=== PATIENT | female | born 1975 | race African-American/Black ===

== ENCOUNTER 2021-05-15 06:11 | Observation (INO) ==
[2021-05-11 14:57] LABS: Basophils % 0.6 % (0.0-0.8); Eosinophils # 0.3 10*3/uL (0.0-0.87); Eosinophils % 5.2 % (0.00-10.9); Hematocrit 32.6 VOL% (35.7-47.0); Hemoglobin 9.9 GM/DL (12.0-16.0); Immature Granulocytes % 0.4 %; Immature Granulocytes Absolute 0.02 #; Lymphocytes # 1.1 10*3/uL (1.4-4.0); Lymphocytes % 20.3 % (21.3-54.2); Mean Corpuscular HGB Conc 30.4 GM/DL (32-36); Mean Corpuscular Volume 93.4 FL (87-102); Mean Platelet Volume 10.3 FL (9.6-12.0); Monocytes % 6.3 % (1.7-12.7); Neutrophils % 67.2 % (38.7-73.9); Platelet Count 149 T/CUMM (130-400); Red Blood Count 3.49 MC/CUMM (3.8-5.5); Red Cell Distribution Width 17.2 % (9.3-17.3); White Blood Count 5.2 T/CUMM (4-12)
[2021-05-11 15:17] LABS: Calcium 10.1 MG/DL (8.5-10.1); Potassium 5.6 MMOL/L (3.5-5.1)
[~2021-05-15 06:11] MED LIST: SODIUM CHLORIDE 0.9% 250 ML IV SCH; ceFAZolin 1,000 MG VIAL ONE
[2021-05-15] MEDS ORDERED: LIDOCAINE 1%/EPI INJ 20 ML VIAL ONE (06:31)
[2021-05-15] MEDS ORDERED: HEPARIN 5,000 UNIT/1 ML VIAL ONE ×2 (06:31→06:51)
[2021-05-15] MEDS ORDERED: BUPIVACAINE MPF 0.25% 30 ML VIAL ONE (06:31)
[2021-05-15 06:43] LABS: Hematocrit 33.2 VOL% (35.7-47.0); Hemoglobin 10.4 GM/DL (12.0-16.0)
[2021-05-15] MEDS ORDERED: MIDAZOLAM 2 MG/2 ML VIAL ONE (07:10)
[2021-05-15] MEDS ORDERED: fentaNYL 100 MCG/2 ML VIAL ONE (07:27)
[2021-05-15] MEDS ORDERED: SODIUM CHLORIDE 0.9% 250 ML IV ONE (07:32)
[2021-05-15] MEDS ORDERED: DEXAMETHASONE 4 MG/1 ML VIAL ONE (07:58)
[2021-05-15] MEDS ORDERED: PHENYLEPHRINE 1 MG/10 ML SYRINGE IV ONE (08:05)
[2021-05-15] MEDS ORDERED: ONDANSETRON 4 MG/2 ML VIAL ONE (08:05)
[2021-05-15] MEDS ORDERED: propofoL 200 MG/20 ML VIAL IV ONE (08:05)
[2021-05-15] MEDS ORDERED: LIDOCAINE 2% 5 ML VIAL ONE (08:05)
[2021-05-15] MEDS ORDERED: HEPARIN 10,000 UNIT/10 ML VIAL ONE (08:11)
[2021-05-15] MEDS ORDERED: TISSUE ADHESIVE 1 EACH APPLICATOR TOP ONE (09:21)
[2021-05-15] MEDS ORDERED: SEVOFLURANE 1 UNIT/15 MINUTE INH ONE (09:49)
[2021-05-15] MEDS ORDERED: HYDROmorphone 2 MG/1 ML VIAL IV PRN (09:51)
[2021-05-15] MEDS ORDERED: ONDANSETRON 4 MG/2 ML VIAL IV PRN ×2 (09:51→16:29)
[2021-05-15] MEDS ORDERED: HYDROmorphone 2 MG/1 ML VIAL IV STA (12:57)
[2021-05-15] MEDS ORDERED: ACETAMINOPHEN 325 MG TABLET PO PRN (16:29)
[2021-05-15] MEDS: HYDROmorphone 2 MG/1 ML VIAL IV PRN (19:17)
[2021-05-16] MEDS: HYDROmorphone 2 MG/1 ML VIAL IV PRN ×5 (00:07→23:03)
[2021-05-16] MEDS: PANTOPRAZOLE 40 MG TABLET PO SCH (09:46)
[2021-05-16] MEDS ORDERED: LIDOCAINE 1% 20 ML VIAL MISC INJ ONE (10:35)
[2021-05-17] MEDS: HYDROmorphone 2 MG/1 ML VIAL IV PRN ×2 (05:34→10:03)
[2021-05-17] MEDS: PANTOPRAZOLE 40 MG TABLET PO SCH (08:07)
[2021-05-17 11:27] VITALS: BP 130/63
== END 2021-05-17 14:20 | disposition home or self-care (01) ==
LOC: N.3E 06:11 → N.OR 06:11 → N.SDSINP 06:11 → N.3E 16:50
PROVIDERS: ADMIT Student in an Organized Health Care Education/Training Program; ATTEND Student in an Organized Health Care Education/Training Program

== ENCOUNTER 2021-07-26 13:06 | Inpatient (IN) ==
[2021-07-26] MEDS ORDERED: HYDROmorphone 2 MG/1 ML VIAL IM STA (13:27)
[2021-07-26] MEDS ORDERED: ONDANSETRON 4 MG/2 ML VIAL IM STA (13:28)
[2021-07-26] MEDS ORDERED: ONDANSETRON 4 MG/2 ML VIAL IV STA (14:21)
[2021-07-26] MEDS ORDERED: HYDROmorphone 2 MG/1 ML VIAL IV STA ×2 (14:21→14:27)
[2021-07-26] MEDS ORDERED: ONDANSETRON 4 MG/2 ML VIAL IV PRN (14:33)
[2021-07-26] MEDS ORDERED: ACETAMINOPHEN 325 MG TABLET PO PRN (14:33)
[2021-07-26] MEDS ORDERED: BISACODYL 5 MG TABLET PO PRN (14:33)
[2021-07-26 15:00] LABS: Basophils # 0.1 10*3/uL (0.0-0.2); Basophils % 0.9 % (0.0-0.8); Eosinophils # 0.3 10*3/uL (0.0-0.87); Eosinophils % 3.5 % (0.00-10.9); Hematocrit 30.3 VOL% (35.7-47.0); Hemoglobin 9.5 GM/DL (12.0-16.0); Immature Granulocytes % 0.4 %; Immature Granulocytes Absolute 0.03 #; Lymphocytes # 0.8 10*3/uL (1.4-4.0); Lymphocytes % 11.8 % (21.3-54.2); Mean Corpuscular HGB Conc 31.4 GM/DL (32-36); Mean Corpuscular Volume 90.7 FL (87-102); Mean Platelet Volume 9.6 FL (9.6-12.0); Monocytes % 5.2 % (1.7-12.7); Neutrophils % 78.2 % (38.7-73.9); Platelet Count 140 T/CUMM (130-400); Red Blood Count 3.34 MC/CUMM (3.8-5.5); Red Cell Distribution Width 16.2 % (9.3-17.3); White Blood Count 7.1 T/CUMM (4-12)
[2021-07-26 15:12] LABS: Calcium 10.3 MG/DL (8.5-10.1); Osmolality,Calculated 266.4 MOS/KG (273-304); Potassium 3.6 MMOL/L (3.5-5.1)
[2021-07-26] MEDS: HYDROmorphone 2 MG/1 ML VIAL IV PRN (20:12)
[2021-07-26] MEDS: KETOROLAC 30 MG/1 ML VIAL IV PRN (23:14)
[2021-07-27] MEDS: HYDROmorphone 2 MG/1 ML VIAL IV PRN ×5 (00:36→23:45)
[2021-07-27] MEDS: KETOROLAC 30 MG/1 ML VIAL IV PRN ×2 (05:38→20:57)
[2021-07-27 05:41] LABS: Basophils % 0.4 % (0.0-0.8); Eosinophils % 0.4 % (0.00-10.9); Hematocrit 25.7 VOL% (35.7-47.0); Immature Granulocytes % 0.3 %; Immature Granulocytes Absolute 0.03 #; Lymphocytes # 1.2 10*3/uL (1.4-4.0); Lymphocytes % 11.6 % (21.3-54.2); Mean Corpuscular HGB Conc 31.1 GM/DL (32-36); Mean Corpuscular Volume 94.1 FL (87-102); Mean Platelet Volume 10.4 FL (9.6-12.0); Monocytes % 5.9 % (1.7-12.7); Neutrophils % 81.4 % (38.7-73.9); Platelet Count 166 T/CUMM (130-400); Red Blood Count 2.73 MC/CUMM (3.8-5.5); White Blood Count 9.9 T/CUMM (4-12)
[2021-07-27 06:06] LABS: Calcium 10.6 MG/DL (8.5-10.1); Osmolality,Calculated 266.5 MOS/KG (273-304); Potassium 4.9 MMOL/L (3.5-5.1)
[2021-07-27] MEDS: PANTOPRAZOLE 40 MG TABLET PO SCH (08:15)
[2021-07-27] MEDS ORDERED: BUPIVACAINE MPF 0.25% 30 ML VIAL ONE (08:25)
[2021-07-27] MEDS ORDERED: HEPARIN 5,000 UNIT/1 ML VIAL ONE (08:25)
[2021-07-27] MEDS ORDERED: LIDOCAINE 1%/EPI INJ 20 ML VIAL ONE (08:25)
[2021-07-27] MEDS ORDERED: propofoL 200 MG/20 ML VIAL IV ONE (08:41)
[2021-07-27] MEDS ORDERED: fentaNYL 100 MCG/2 ML VIAL ONE (08:41)
[2021-07-27] MEDS ORDERED: LIDOCAINE 2% 5 ML VIAL ONE (08:41)
[2021-07-27] MEDS ORDERED: MIDAZOLAM 2 MG/2 ML VIAL ONE (08:42)
[2021-07-27] MEDS ORDERED: SODIUM CHLORIDE 0.9% 250 ML IV SCH (09:00)
[2021-07-27] MEDS ORDERED: SODIUM CHLORIDE 0.9% 1,000 ML IV PRN (09:39)
[2021-07-27] MEDS ORDERED: SODIUM CHLORIDE 0.9% 250 ML IV ONE (10:21)
[2021-07-27] MEDS ORDERED: SEVOFLURANE 1 UNIT/15 MINUTE INH ONE (10:21)
[2021-07-27] MEDS ORDERED: PHENYLEPHRINE DRIP 20 MG/250 ML PREMIX IV ONE (10:38)
[2021-07-27] MEDS ORDERED: ONDANSETRON 4 MG/2 ML VIAL IV PRN (10:49)
[2021-07-27] MEDS ORDERED: HYDROmorphone 2 MG/1 ML VIAL IV PRN (10:49)
[2021-07-27] MEDS ORDERED: EPOETIN ALFA-EPBX 2,000 UNIT/ML VIAL IV PRN (17:24)
[2021-07-28] MEDS: PANTOPRAZOLE 40 MG TABLET PO SCH (09:08)
[2021-07-28] MEDS: diphenhydrAMINE CAP 25 MG CAPSULE PO PRN (12:24)
[2021-07-28] MEDS ORDERED: EPOETIN ALFA-EPBX 10,000 UNIT/ML VIAL IV PRN (17:30)
[2021-07-28] MEDS: HYDROmorphone 2 MG/1 ML VIAL IV PRN (18:34)
[2021-07-29] MEDS: HYDROmorphone 2 MG/1 ML VIAL IV PRN ×3 (02:01→21:24)
[2021-07-29 05:18] LABS: Basophils % 0.3 % (0.0-0.8); Eosinophils # 0.3 10*3/uL (0.0-0.87); Eosinophils % 4.2 % (0.00-10.9); Hematocrit 20.9 VOL% (35.7-47.0); Hemoglobin 6.6 GM/DL (12.0-16.0); Immature Granulocytes % 0.4 %; Immature Granulocytes Absolute 0.03 #; Lymphocytes # 1.4 10*3/uL (1.4-4.0); Lymphocytes % 19.7 % (21.3-54.2); Mean Corpuscular HGB Conc 31.6 GM/DL (32-36); Mean Corpuscular Volume 90.9 FL (87-102); Mean Platelet Volume 10.2 FL (9.6-12.0); Monocytes % 6.6 % (1.7-12.7); Neutrophils % 68.8 % (38.7-73.9); Platelet Count 106 T/CUMM (130-400); Red Cell Distribution Width 17.2 % (9.3-17.3); White Blood Count 7.1 T/CUMM (4-12)
[2021-07-29 05:37] LABS: Calcium 9.4 MG/DL (8.5-10.1); Osmolality,Calculated 267.4 MOS/KG (273-304); Potassium 4.2 MMOL/L (3.5-5.1)
[2021-07-29] MEDS ORDERED: SODIUM CHLORIDE 0.9% 1,000 ML IV PRN (08:37)
[2021-07-29] MEDS: PANTOPRAZOLE 40 MG TABLET PO SCH (09:21)
[2021-07-29 16:45] LABS: Hematocrit 30.3 VOL% (35.7-47.0)
[2021-07-29 16:58] LABS: INR 1.2; PT Patient Result 13.2 SECS (10.5-12.0); Partial Thromboplastin Time 33.5 SECS (23.8-32.1)
[2021-07-30 04:44] LABS: Basophils % 0.6 % (0.0-0.8); Eosinophils # 0.5 10*3/uL (0.0-0.87); Eosinophils % 7.8 % (0.00-10.9); Hematocrit 26.1 VOL% (35.7-47.0); Hemoglobin 8.8 GM/DL (12.0-16.0); Immature Granulocytes % 0.4 %; Immature Granulocytes Absolute 0.03 #; Lymphocytes # 1.4 10*3/uL (1.4-4.0); Lymphocytes % 19.5 % (21.3-54.2); Mean Corpuscular HGB Conc 33.7 GM/DL (32-36); Mean Corpuscular Volume 88.8 FL (87-102); Monocytes % 7.6 % (1.7-12.7); Neutrophils % 64.1 % (38.7-73.9); Platelet Count 114 T/CUMM (130-400); Red Blood Count 2.94 MC/CUMM (3.8-5.5); Red Cell Distribution Width 16.4 % (9.3-17.3); White Blood Count 6.9 T/CUMM (4-12)
[2021-07-30] MEDS: PANTOPRAZOLE 40 MG TABLET PO SCH (10:00)
[2021-07-30] MEDS: HYDROmorphone 2 MG/1 ML VIAL IV PRN ×2 (14:30→21:05)
[2021-07-31] MEDS: KETOROLAC 30 MG/1 ML VIAL IV PRN (01:35)
[2021-07-31] MEDS: diphenhydrAMINE CAP 25 MG CAPSULE PO PRN ×2 (01:35→16:48)
[2021-07-31 06:12] LABS: Hematocrit 26.4 VOL% (35.7-47.0)
[2021-07-31] MEDS: PANTOPRAZOLE 40 MG TABLET PO SCH (09:19)
[2021-07-31] MEDS ORDERED: HEPARIN 10,000 UNIT/10 ML VIAL IV SCH (12:30)
[2021-07-31] MEDS: HYDROmorphone 2 MG/1 ML VIAL IV PRN ×2 (14:12→21:29)
[2021-08-01] MEDS: HYDROmorphone 2 MG/1 ML VIAL IV PRN ×4 (01:20→15:17)
[2021-08-01 06:45] LABS: Basophils % 0.4 % (0.0-0.8); Eosinophils # 0.4 10*3/uL (0.0-0.87); Eosinophils % 9.1 % (0.00-10.9); Hematocrit 24.8 VOL% (35.7-47.0); Hemoglobin 8.1 GM/DL (12.0-16.0); Immature Granulocytes % 0.4 %; Immature Granulocytes Absolute 0.02 #; Lymphocytes % 21.9 % (21.3-54.2); Mean Corpuscular HGB Conc 32.7 GM/DL (32-36); Mean Corpuscular Volume 91.9 FL (87-102); Mean Platelet Volume 9.6 FL (9.6-12.0); Monocytes % 8.8 % (1.7-12.7); Neutrophils % 59.4 % (38.7-73.9); Platelet Count 141 T/CUMM (130-400); Red Cell Distribution Width 17.1 % (9.3-17.3); White Blood Count 4.8 T/CUMM (4-12)
[2021-08-01] MEDS: PANTOPRAZOLE 40 MG TABLET PO SCH (09:32)
[2021-08-01] MEDS: diphenhydrAMINE CAP 25 MG CAPSULE PO PRN (09:32)
[2021-08-01 14:33] LABS: Hematocrit 23.8 VOL% (35.7-47.0); Hemoglobin 7.8 GM/DL (12.0-16.0)
[2021-08-01 16:41] VITALS: BP 165/76
== END 2021-08-01 17:59 | disposition home or self-care (01) | DRG 987 ==
LOC: N.ED 13:06 → N.EDINP 13:06 → N.3E 20:44
PROVIDERS: ADMIT Surgery; ATTEND Student in an Organized Health Care Education/Training Program
PROC: VAVDCFI (2021-07-27 09:04)

== ENCOUNTER 2021-11-09 23:31 | Inpatient (IN) ==
[2021-11-10] MEDS ORDERED: ONDANSETRON 4 MG/2 ML VIAL ONE (00:15)
[2021-11-10] MEDS ORDERED: fentaNYL 100 MCG/2 ML VIAL ONE (00:16)
[2021-11-10] MEDS ORDERED: ONDANSETRON 4 MG/2 ML VIAL IV STA ×2 (00:21→01:04)
[2021-11-10] MEDS ORDERED: fentaNYL 100 MCG/2 ML VIAL IV STA (00:22)
[2021-11-10 00:40] LABS: Albumin 2.7 G/DL (3.4-5.0); Bilirubin,Total 0.6 MG/DL (0.20-1.00); Potassium 3.7 MMOL/L (3.5-5.1); Total Protein 6.9 G/DL (6.4-8.2)
[2021-11-10 00:56] LABS: Basophils # 0.1 10*3/uL (0.0-0.2); Basophils % 0.6 % (0.0-0.8); Eosinophils # 0.5 10*3/uL (0.0-0.87); Eosinophils % 4.5 % (0.00-10.9); Hematocrit 29.7 VOL% (35.7-47.0); Hemoglobin 9.1 GM/DL (12.0-16.0); Immature Granulocytes % 0.3 %; Immature Granulocytes Absolute 0.03 #; Lymphocytes # 2.6 10*3/uL (1.4-4.0); Lymphocytes % 23.5 % (21.3-54.2); Mean Corpuscular HGB Conc 30.6 GM/DL (32-36); Mean Corpuscular Volume 90.3 FL (87-102); Mean Platelet Volume 9.9 FL (9.6-12.0); Monocytes % 4.8 % (1.7-12.7); Neutrophils % 66.3 % (38.7-73.9); Platelet Count 227 T/CUMM (130-400); Red Blood Count 3.29 MC/CUMM (3.8-5.5); Red Cell Distribution Width 16.4 % (9.3-17.3); White Blood Count 10.9 T/CUMM (4-12)
[2021-11-10] MEDS ORDERED: MORPHINE 2 MG/1 ML SYRINGE IV STA (01:04)
[2021-11-10 01:22] LABS: INR 1.4; PT Patient Result 14.9 SECS (10.5-12.0)
[2021-11-10] MEDS ORDERED: hydrALAZINE 20 MG/1 ML VIAL IV STA (01:35)
[2021-11-10] MEDS ORDERED: diphenhydrAMINE 50 MG/1 ML VIAL IV STA (01:39)
[2021-11-10] MEDS ORDERED: methylPREDNISolone SOD SUC 125 MG/2 ML VIAL IV STA (01:39)
[2021-11-10] MEDS ORDERED: FAMOTIDINE 20 MG/2 ML VIAL IV STA (01:40)
[2021-11-10] MEDS ORDERED: LORazepam 2 MG/1 ML VIAL IV STA (01:43)
[2021-11-10] MEDS ORDERED: hydrALAZINE 20 MG/1 ML VIAL IV PRN (04:54)
[2021-11-10] MEDS ORDERED: ACETAMINOPHEN 325 MG TABLET PO PRN (04:54)
[2021-11-10] MEDS: HYDROmorphone 2 MG/1 ML VIAL IV PRN ×3 (05:47→22:38)
[2021-11-10] MEDS ORDERED: BUPIVACAINE MPF 0.25% 30 ML VIAL ONE (10:13)
[2021-11-10] MEDS ORDERED: HEPARIN 5,000 UNIT/1 ML VIAL ONE (10:13)
[2021-11-10] MEDS ORDERED: LIDOCAINE 1%/EPI INJ 20 ML VIAL ONE (10:14)
[2021-11-10] MEDS ORDERED: ETOMIDATE 40 MG/20 ML VIAL IV ONE (10:25)
[2021-11-10] MEDS ORDERED: LIDOCAINE 2% 5 ML VIAL ONE (10:25)
[2021-11-10] MEDS ORDERED: propofoL 200 MG/20 ML VIAL IV ONE (10:25)
[2021-11-10] MEDS ORDERED: SODIUM CHLORIDE 0.9% 250 ML IV SCH (10:30)
[2021-11-10] MEDS ORDERED: SEVOFLURANE 1 UNIT/15 MINUTE INH ONE (11:05)
[2021-11-10] MEDS: PANTOPRAZOLE 40 MG TABLET PO SCH (11:40)
[2021-11-10] MEDS: SEVELAMER CARBONATE 800 MG TABLET PO SCH (16:57)
[2021-11-11] MEDS: HYDROmorphone 2 MG/1 ML VIAL IV PRN ×4 (03:04→22:58)
[2021-11-11 06:50] LABS: Basophils % 0.2 % (0.0-0.8); Eosinophils # 0.2 10*3/uL (0.0-0.87); Eosinophils % 4.1 % (0.00-10.9); Hemoglobin 7.7 GM/DL (12.0-16.0); Immature Granulocytes % 0.2 %; Immature Granulocytes Absolute 0.01 #; Lymphocytes # 1.5 10*3/uL (1.4-4.0); Lymphocytes % 34.8 % (21.3-54.2); Mean Corpuscular HGB Conc 30.8 GM/DL (32-36); Mean Corpuscular Volume 90.3 FL (87-102); Mean Platelet Volume 9.6 FL (9.6-12.0); Monocytes % 8.1 % (1.7-12.7); Neutrophils % 52.6 % (38.7-73.9); Platelet Count 104 T/CUMM (130-400); Red Blood Count 2.77 MC/CUMM (3.8-5.5); Red Cell Distribution Width 16.4 % (9.3-17.3); White Blood Count 4.4 T/CUMM (4-12)
[2021-11-11 07:06] LABS: Calcium 9.2 MG/DL (8.5-10.1); Osmolality,Calculated 270.4 MOS/KG (273-304); Potassium 3.6 MMOL/L (3.5-5.1)
[2021-11-11] MEDS: SEVELAMER CARBONATE 800 MG TABLET PO SCH ×3 (08:36→17:11)
[2021-11-11] MEDS: PANTOPRAZOLE 40 MG TABLET PO SCH (08:36)
[2021-11-12] MEDS: HYDROmorphone 2 MG/1 ML VIAL IV PRN ×3 (06:31→19:20)
[2021-11-12] MEDS: PANTOPRAZOLE 40 MG TABLET PO SCH (09:17)
[2021-11-12] MEDS: SEVELAMER CARBONATE 800 MG TABLET PO SCH ×3 (09:17→16:45)
[2021-11-13] MEDS: SEVELAMER CARBONATE 800 MG TABLET PO SCH ×3 (08:33→17:41)
[2021-11-13] MEDS: PANTOPRAZOLE 40 MG TABLET PO SCH (08:33)
[2021-11-13] MEDS: HYDROmorphone 2 MG/1 ML VIAL IV PRN ×2 (08:49→17:39)
[2021-11-13] MEDS ORDERED: VANCOMYCIN INJ 1,000 MG in SODIUM CHLORIDE 0.9% 250 ML IV ONE (09:17)
[2021-11-13] MEDS: ONDANSETRON 4 MG/2 ML VIAL IV PRN (14:09)
[2021-11-13] MEDS ORDERED: VANCOMYCIN INJ 2,000 MG in SODIUM CHLORIDE 0.9% 500 ML IV ONE (18:00)
[2021-11-14] MEDS: ONDANSETRON 4 MG/2 ML VIAL IV PRN ×2 (01:16→08:46)
[2021-11-14] MEDS: HYDROmorphone 2 MG/1 ML VIAL IV PRN (05:52)
[2021-11-14] MEDS ORDERED: NAPROXEN 250 MG TABLET PO PRN (07:04)
[2021-11-14] MEDS ORDERED: ASPIRIN ACETAMINOPHEN CAFFEINE PO PRN (07:04)
[2021-11-14] MEDS ORDERED: SEVELAMER CARBONATE 800 MG TABLET PO SCH (08:00)
[2021-11-14] MEDS: PANTOPRAZOLE 40 MG TABLET PO SCH (08:40)
[2021-11-14] MEDS: SEVELAMER CARBONATE 800 MG TABLET PO SCH ×2 (08:40→11:24)
[2021-11-14] MEDS ORDERED: HEPARIN 10,000 UNIT/10 ML VIAL IV SCH (11:30)
[2021-11-14 16:35] VITALS: BP 157/86
[2021-11-15] MEDS ORDERED: VANCOMYCIN INJ 750 MG in SODIUM CHLORIDE 0.9% 250 ML IV SCH (17:00)
== END 2021-11-14 16:38 | disposition home or self-care (01) | DRG 252 ==
LOC: EDUNIT# → EDBD → N.ED 23:31 → N.EDINP 11-10 01:15 → N.TELES 11-10 03:57
PROVIDERS: ADMIT Surgery; ATTEND Surgery

== ENCOUNTER 2022-01-10 20:10 | Inpatient (IN) ==
[2022-01-10] MEDS ORDERED: PIPERACILLIN/TAZOBACTAM 2,250 MG in SODIUM CHLORIDE 0.9% 100 ML IV STA (21:19)
[2022-01-10] MEDS ORDERED: ACETAMINOPHEN 500 MG TABLET PO STA (21:19)
[2022-01-10] MEDS ORDERED: hydrALAZINE 20 MG/1 ML VIAL IV STA (21:19)
[2022-01-10] MEDS ORDERED: ALBUTEROL/IPRATROPIUM 3 ML NEB RESP TX STA (21:19)
[2022-01-10 21:59] LABS: Basophils % 0.2 % (0.0-0.8); Eosinophils # 0.2 10*3/uL (0.0-0.87); Eosinophils % 1.7 % (0.00-10.9); Hematocrit 38.3 VOL% (35.7-47.0); Hemoglobin 12.4 GM/DL (12.0-16.0); Immature Granulocytes % 0.7 %; Immature Granulocytes Absolute 0.07 #; Lymphocytes # 0.6 10*3/uL (1.4-4.0); Lymphocytes % 5.6 % (21.3-54.2); Mean Corpuscular HGB Conc 32.4 GM/DL (32-36); Mean Corpuscular Volume 88.9 FL (87-102); Monocytes # 0.5 10*3/uL (0.11-0.8); Monocytes % 4.9 % (1.7-12.7); Neutrophils % 86.9 % (38.7-73.9); Platelet Count 113 T/CUMM (130-400); Red Blood Count 4.31 MC/CUMM (3.8-5.5); Red Cell Distribution Width 17.2 % (9.3-17.3); White Blood Count 10.1 T/CUMM (4-12)
[2022-01-10 22:19] LABS: Albumin 3.9 G/DL (3.4-5.0); Bilirubin,Total 0.9 MG/DL (0.20-1.00); Calcium 10.2 MG/DL (8.5-10.1); Osmolality,Calculated 275.2 MOS/KG (273-304); Potassium 3.9 MMOL/L (3.5-5.1); Total Protein 8.7 G/DL (6.4-8.2)
[2022-01-10] MEDS ORDERED: BISACODYL 5 MG TABLET PO PRN (23:11)
[2022-01-10] MEDS ORDERED: NICOTINE 21 MG/24 HR PATCH TRANSDERM PRN (23:11)
[2022-01-10] MEDS ORDERED: DEXTROSE 10% 250 ML BAG IV PRN (23:11)
[2022-01-10] MEDS ORDERED: ONDANSETRON 4 MG/2 ML VIAL IV PRN (23:11)
[2022-01-10] MEDS ORDERED: GLUCAGON 1 MG VIAL IM PRN (23:11)
[2022-01-10] MEDS ORDERED: hydrALAZINE 20 MG/1 ML VIAL IV PRN (23:11)
[2022-01-11] MEDS: ZALEPLON 5 MG CAPSULE PO PRN (00:27)
[2022-01-11] MEDS: ALBUTEROL/IPRATROPIUM 3 ML NEB RESP TX SCH ×4 (01:55→19:33)
[2022-01-11] MEDS ORDERED: VANCOMYCIN INJ 500 MG in SODIUM CHLORIDE 0.9% 100 ML IV PRN (02:31)
[2022-01-11] MEDS ORDERED: VANCOMYCIN INJ 1,500 MG in SODIUM CHLORIDE 0.9% 500 ML IV ONE (03:00)
[2022-01-11 03:27] LABS: Basophils % 0.3 % (0.0-0.8); Eosinophils # 0.2 10*3/uL (0.0-0.87); Eosinophils % 2.7 % (0.00-10.9); Hematocrit 35.2 VOL% (35.7-47.0); Hemoglobin 11.3 GM/DL (12.0-16.0); Immature Granulocytes % 0.4 %; Immature Granulocytes Absolute 0.03 #; Lymphocytes # 0.7 10*3/uL (1.4-4.0); Lymphocytes % 8.5 % (21.3-54.2); Mean Corpuscular HGB Conc 32.1 GM/DL (32-36); Mean Corpuscular Volume 88.7 FL (87-102); Mean Platelet Volume 9.8 FL (9.6-12.0); Monocytes # 0.4 10*3/uL (0.11-0.8); Monocytes % 4.7 % (1.7-12.7); Neutrophils % 83.4 % (38.7-73.9); Platelet Count 104 T/CUMM (130-400); Red Blood Count 3.97 MC/CUMM (3.8-5.5); Red Cell Distribution Width 17.2 % (9.3-17.3); White Blood Count 7.8 T/CUMM (4-12)
[2022-01-11 03:46] LABS: Calcium 10.1 MG/DL (8.5-10.1); Osmolality,Calculated 275.2 MOS/KG (273-304); Potassium 3.9 MMOL/L (3.5-5.1)
[2022-01-11] MEDS: PIPERACILLIN/TAZOBACTAM 3,375 MG in SODIUM CHLORIDE 0.9% 100 ML IV SCH ×2 (06:45→17:37)
[2022-01-11] MEDS: HEPARIN 5,000 UNIT/1 ML VIAL SUBCUT SCH ×2 (12:11→20:58)
[2022-01-11] MEDS: PANTOPRAZOLE 40 MG TABLET PO SCH (12:11)
[2022-01-11] MEDS: SEVELAMER CARBONATE 800 MG TABLET PO SCH ×2 (12:14→16:50)
[2022-01-11] MEDS: ACETAMINOPHEN 325 MG TABLET PO PRN (12:46)
[2022-01-11] MEDS ORDERED: FLUCONAZOLE 150 MG TABLET PO ONE (17:00)
[2022-01-12] MEDS: ZALEPLON 5 MG CAPSULE PO PRN ×2 (00:11→21:26)
[2022-01-12] MEDS: diphenhydrAMINE CAP 25 MG CAPSULE PO PRN ×2 (00:11→21:25)
[2022-01-12] MEDS: ALBUTEROL/IPRATROPIUM 3 ML NEB RESP TX SCH ×4 (00:38→20:15)
[2022-01-12 05:22] LABS: Basophils % 0.4 % (0.0-0.8); Eosinophils # 0.3 10*3/uL (0.0-0.87); Eosinophils % 6.2 % (0.00-10.9); Hematocrit 28.5 VOL% (35.7-47.0); Hemoglobin 9.1 GM/DL (12.0-16.0); Immature Granulocytes % 0.2 %; Immature Granulocytes Absolute 0.01 #; Lymphocytes # 0.7 10*3/uL (1.4-4.0); Lymphocytes % 15.9 % (21.3-54.2); Mean Corpuscular HGB Conc 31.9 GM/DL (32-36); Mean Corpuscular Volume 90.2 FL (87-102); Mean Platelet Volume 10.5 FL (9.6-12.0); Monocytes # 0.4 10*3/uL (0.11-0.8); Monocytes % 8.6 % (1.7-12.7); Neutrophils % 68.7 % (38.7-73.9); Platelet Count 106 T/CUMM (130-400); Red Blood Count 3.16 MC/CUMM (3.8-5.5); White Blood Count 4.5 T/CUMM (4-12)
[2022-01-12] MEDS: PIPERACILLIN/TAZOBACTAM 3,375 MG in SODIUM CHLORIDE 0.9% 100 ML IV SCH ×2 (05:22→19:08)
[2022-01-12 05:34] LABS: Calcium 9.6 MG/DL (8.5-10.1); Osmolality,Calculated 281.1 MOS/KG (273-304); Potassium 4.1 MMOL/L (3.5-5.1)
[2022-01-12] MEDS: SEVELAMER CARBONATE 800 MG TABLET PO SCH ×3 (08:44→16:45)
[2022-01-12] MEDS: PANTOPRAZOLE 40 MG TABLET PO SCH (08:45)
[2022-01-12] MEDS: HEPARIN 5,000 UNIT/1 ML VIAL SUBCUT SCH ×2 (08:46→21:26)
[2022-01-12] MEDS ORDERED: VANCOMYCIN INJ 500 MG in SODIUM CHLORIDE 0.9% 100 ML IV ONE (17:00)
[2022-01-12] MEDS: CHOLESTYRAMINE 4 GM PACK PO SCH (22:14)
[2022-01-13] MEDS: ALBUTEROL/IPRATROPIUM 3 ML NEB RESP TX SCH ×4 (02:56→19:45)
[2022-01-13] MEDS: PIPERACILLIN/TAZOBACTAM 3,375 MG in SODIUM CHLORIDE 0.9% 100 ML IV SCH ×2 (05:41→17:08)
[2022-01-13 08:51] LABS: Basophils % 0.7 % (0.0-0.8); Eosinophils # 0.3 10*3/uL (0.0-0.87); Eosinophils % 9.1 % (0.00-10.9); Hematocrit 31.5 VOL% (35.7-47.0); Hemoglobin 9.9 GM/DL (12.0-16.0); Immature Granulocytes % 0.3 %; Immature Granulocytes Absolute 0.01 #; Lymphocytes # 0.7 10*3/uL (1.4-4.0); Lymphocytes % 24.3 % (21.3-54.2); Mean Corpuscular HGB Conc 31.4 GM/DL (32-36); Mean Platelet Volume 10.6 FL (9.6-12.0); Monocytes # 0.3 10*3/uL (0.11-0.8); Monocytes % 8.8 % (1.7-12.7); Neutrophils % 56.8 % (38.7-73.9); Platelet Count 115 T/CUMM (130-400); Red Blood Count 3.46 MC/CUMM (3.8-5.5); Red Cell Distribution Width 17.2 % (9.3-17.3)
[2022-01-13 09:08] LABS: Calcium 10.3 MG/DL (8.5-10.1); Osmolality,Calculated 268.4 MOS/KG (273-304); Potassium 3.9 MMOL/L (3.5-5.1)
[2022-01-13] MEDS: PANTOPRAZOLE 40 MG TABLET PO SCH (09:12)
[2022-01-13] MEDS: SEVELAMER CARBONATE 800 MG TABLET PO SCH ×3 (09:12→17:08)
[2022-01-13] MEDS: HEPARIN 5,000 UNIT/1 ML VIAL SUBCUT SCH ×2 (09:12→21:16)
[2022-01-13] MEDS: CHOLESTYRAMINE 4 GM PACK PO SCH ×2 (10:31→21:52)
[2022-01-13] MEDS: FLUCONAZOLE 100 MG TABLET PO SCH (14:25)
[2022-01-13] MEDS: tiZANidine 4 MG TABLET PO PRN (15:44)
[2022-01-13] MEDS: guaiFENesin/DM ER 600-30 MG TABLET PO PRN (17:08)
[2022-01-13] MEDS: diphenhydrAMINE CAP 25 MG CAPSULE PO PRN (21:16)
[2022-01-13] MEDS: ZALEPLON 5 MG CAPSULE PO PRN (21:16)
[2022-01-14] MEDS: tiZANidine 4 MG TABLET PO PRN ×3 (00:26→20:44)
[2022-01-14] MEDS: ALBUTEROL/IPRATROPIUM 3 ML NEB RESP TX SCH ×4 (01:39→19:00)
[2022-01-14] MEDS: PIPERACILLIN/TAZOBACTAM 3,375 MG in SODIUM CHLORIDE 0.9% 100 ML IV SCH (05:11)
[2022-01-14 05:13] LABS: Basophils % 0.7 % (0.0-0.8); Eosinophils # 0.3 10*3/uL (0.0-0.87); Eosinophils % 9.7 % (0.00-10.9); Hematocrit 27.8 VOL% (35.7-47.0); Hemoglobin 8.7 GM/DL (12.0-16.0); Immature Granulocytes % 0.3 %; Immature Granulocytes Absolute 0.01 #; Lymphocytes # 0.8 10*3/uL (1.4-4.0); Lymphocytes % 26.6 % (21.3-54.2); Mean Corpuscular HGB Conc 31.3 GM/DL (32-36); Mean Corpuscular Volume 90.8 FL (87-102); Mean Platelet Volume 10.7 FL (9.6-12.0); Monocytes # 0.2 10*3/uL (0.11-0.8); Monocytes % 6.9 % (1.7-12.7); Neutrophils % 55.8 % (38.7-73.9); Platelet Count 106 T/CUMM (130-400); Red Blood Count 3.06 MC/CUMM (3.8-5.5); Red Cell Distribution Width 16.9 % (9.3-17.3); White Blood Count 2.9 T/CUMM (4-12)
[2022-01-14 05:42] LABS: Calcium 9.9 MG/DL (8.5-10.1); Osmolality,Calculated 264.8 MOS/KG (273-304); Potassium 4.3 MMOL/L (3.5-5.1)
[2022-01-14] MEDS: FLUCONAZOLE 100 MG TABLET PO SCH (09:15)
[2022-01-14] MEDS: guaiFENesin/DM ER 600-30 MG TABLET PO PRN (09:15)
[2022-01-14] MEDS: PANTOPRAZOLE 40 MG TABLET PO SCH (09:15)
[2022-01-14] MEDS: HEPARIN 5,000 UNIT/1 ML VIAL SUBCUT SCH ×2 (09:16→20:44)
[2022-01-14] MEDS: SEVELAMER CARBONATE 800 MG TABLET PO SCH ×3 (09:16→17:57)
[2022-01-14] MEDS ORDERED: LOPERAMIDE 2 MG CAPSULE PO PRN (10:32)
[2022-01-14] MEDS: CHOLESTYRAMINE 4 GM PACK PO SCH ×2 (11:45→21:36)
[2022-01-14] MEDS: ACETAMINOPHEN 325 MG TABLET PO PRN (13:35)
[2022-01-14] MEDS: BENZONATATE 100 MG CAPSULE PO SCH ×2 (14:24→20:44)
[2022-01-14] MEDS: diphenhydrAMINE CAP 25 MG CAPSULE PO PRN (20:44)
[2022-01-14] MEDS: ZALEPLON 5 MG CAPSULE PO PRN (20:44)
[2022-01-15] MEDS: ALBUTEROL/IPRATROPIUM 3 ML NEB RESP TX SCH ×3 (00:05→12:32)
[2022-01-15 05:05] LABS: Basophils % 0.3 % (0.0-0.8); Eosinophils # 0.3 10*3/uL (0.0-0.87); Eosinophils % 8.9 % (0.00-10.9); Hematocrit 27.4 VOL% (35.7-47.0); Hemoglobin 8.6 GM/DL (12.0-16.0); Immature Granulocytes % 0.3 %; Immature Granulocytes Absolute 0.01 #; Lymphocytes # 0.7 10*3/uL (1.4-4.0); Lymphocytes % 23.6 % (21.3-54.2); Mean Corpuscular HGB Conc 31.4 GM/DL (32-36); Mean Corpuscular Volume 89.8 FL (87-102); Mean Platelet Volume 10.8 FL (9.6-12.0); Monocytes # 0.2 10*3/uL (0.11-0.8); Monocytes % 6.6 % (1.7-12.7); Neutrophils % 60.3 % (38.7-73.9); Platelet Count 112 T/CUMM (130-400); Red Blood Count 3.05 MC/CUMM (3.8-5.5); Red Cell Distribution Width 16.7 % (9.3-17.3); White Blood Count 3.1 T/CUMM (4-12)
[2022-01-15 05:09] LABS: Basophils % 0.3 % (0.0-0.8); Eosinophils # 0.3 10*3/uL (0.0-0.87); Eosinophils % 8.9 % (0.00-10.9); Hematocrit 27.6 VOL% (35.7-47.0); Hemoglobin 8.6 GM/DL (12.0-16.0); Immature Granulocytes % 0.3 %; Immature Granulocytes Absolute 0.01 #; Lymphocytes # 0.8 10*3/uL (1.4-4.0); Lymphocytes % 24.4 % (21.3-54.2); Mean Corpuscular HGB Conc 31.2 GM/DL (32-36); Mean Corpuscular Volume 89.6 FL (87-102); Mean Platelet Volume 10.9 FL (9.6-12.0); Monocytes # 0.2 10*3/uL (0.11-0.8); Monocytes % 6.7 % (1.7-12.7); Neutrophils % 59.4 % (38.7-73.9); Platelet Count 107 T/CUMM (130-400); Red Blood Count 3.08 MC/CUMM (3.8-5.5); Red Cell Distribution Width 16.6 % (9.3-17.3); White Blood Count 3.2 T/CUMM (4-12)
[2022-01-15 05:30] LABS: % Iron Saturation 35.1 % (18-50); Ferritin 896.2 ng/mL (8-252)
[2022-01-15 05:46] LABS: Folate 4.15 NG/ML (5.38-24.0); Vitamin B12 361 PG/ML (211-911)
[2022-01-15 06:18] LABS: Sedimentation Rate-Westergren 80 MM/HR (0-20)
[2022-01-15] MEDS: PANTOPRAZOLE 40 MG TABLET PO SCH (08:34)
[2022-01-15] MEDS: BENZONATATE 100 MG CAPSULE PO SCH ×2 (08:34→14:11)
[2022-01-15] MEDS: FLUCONAZOLE 100 MG TABLET PO SCH (08:34)
[2022-01-15] MEDS: SEVELAMER CARBONATE 800 MG TABLET PO SCH ×2 (08:34→12:55)
[2022-01-15] MEDS: HEPARIN 5,000 UNIT/1 ML VIAL SUBCUT SCH (08:37)
[2022-01-15] MEDS ORDERED: HEPARIN 10,000 UNIT/10 ML VIAL IV PRN (10:45)
[2022-01-15] MEDS: CHOLESTYRAMINE 4 GM PACK PO SCH (11:30)
[2022-01-15 11:32] LABS: Hemoglobin A1 (Alkaline) 97.2 % (96.5-98.5); Hemoglobin A2 (Alkaline) 2.8 % (1.5-3.5)
[2022-01-15 13:21] VITALS: BP 175/64
== END 2022-01-15 14:48 | disposition home or self-care (01) | DRG 864 ==
LOC: N.ED 20:10 → N.EDINP 23:11 → SUATTDRO 23:11 → N.EDINP 01-11 14:07 → N.3E 01-11 14:35
PROVIDERS: ADMIT Internal Medicine Geriatric Medicine; ATTEND Hospitalist

== ENCOUNTER 2022-11-01 16:57 | Inpatient (IN) ==
[2022-11-01 17:37] LABS: Basophils # 0.1 10*3/uL (0.0-0.2); Basophils % 0.9 % (0.0-0.8); Eosinophils # 0.2 10*3/uL (0.0-0.87); Eosinophils % 2.1 % (0.00-10.9); Hematocrit 33.4 VOL% (35.7-47.0); Hemoglobin 10.2 GM/DL (12.0-16.0); Immature Granulocytes % 0.2 %; Immature Granulocytes Absolute 0.02 #; Lymphocytes # 3.1 10*3/uL (1.4-4.0); Lymphocytes % 37.5 % (21.3-54.2); Mean Corpuscular HGB Conc 30.5 GM/DL (32-36); Mean Corpuscular Volume 88.4 FL (87-102); Mean Platelet Volume 9.7 FL (9.6-12.0); Monocytes # 0.4 10*3/uL (0.11-0.8); Monocytes % 4.8 % (1.7-12.7); Neutrophils % 54.5 % (38.7-73.9); Platelet Count 217 T/CUMM (130-400); Red Blood Count 3.78 MC/CUMM (3.8-5.5); Red Cell Distribution Width 16.9 % (9.3-17.3); White Blood Count 8.2 T/CUMM (4-12)
[2022-11-01 17:54] LABS: Albumin 3.3 G/DL (3.4-5.0); Bilirubin,Total 0.7 MG/DL (0.20-1.00); Calcium 8.1 MG/DL (8.5-10.1); Osmolality,Calculated 278.5 MOS/KG (273-304); Potassium 3.5 MMOL/L (3.5-5.1); Total Protein 6.7 G/DL (6.4-8.2)
[2022-11-01] MEDS ORDERED: ONDANSETRON 4 MG/2 ML VIAL IV ONE (18:01)
[2022-11-01] MEDS ORDERED: MORPHINE 2 MG/1 ML SYRINGE IV ONE (18:01)
[2022-11-01 18:20] LABS: INR 1.3; PT Patient Result 14.2 SECS (10.1-12.1)
[2022-11-01] MEDS ORDERED: SODIUM CHLORIDE 0.9% 500 ML IV STA (19:56)
[2022-11-01] MEDS ORDERED: SODIUM CHLORIDE 0.9% 1,000 ML IV PRN (20:03)
[2022-11-01] MEDS ORDERED: MAGNESIUM SULF RIDER 4 GM/100 ML PREMIX IV PRN (21:07)
[2022-11-01] MEDS ORDERED: MAGNESIUM SULF RIDER 2 GM/50 ML PREMIX IV PRN (21:07)
[2022-11-01] MEDS: MORPHINE 2 MG/1 ML SYRINGE IV PRN (23:08)
[2022-11-01] MEDS: ONDANSETRON 4 MG/2 ML VIAL IV PRN (23:27)
[2022-11-02 01:00] LABS: Hemoglobin 8.5 GM/DL (12.0-16.0)
[2022-11-02] MEDS ORDERED: oxyCODONE/ACETAMINOPHEN 5-325 MG TABLET PO STA (01:22)
[2022-11-02 04:45] LABS: Basophils # 0.1 10*3/uL (0.0-0.2); Basophils % 0.5 % (0.0-0.8); Eosinophils % 0.3 % (0.00-10.9); Hematocrit 30.8 VOL% (35.7-47.0); Hemoglobin 9.8 GM/DL (12.0-16.0); Immature Granulocytes % 0.6 %; Immature Granulocytes Absolute 0.06 #; Lymphocytes # 1.9 10*3/uL (1.4-4.0); Lymphocytes % 19.4 % (21.3-54.2); Mean Corpuscular HGB Conc 31.8 GM/DL (32-36); Mean Platelet Volume 10.6 FL (9.6-12.0); Monocytes # 0.6 10*3/uL (0.11-0.8); Monocytes % 6.2 % (1.7-12.7); Platelet Count 154 T/CUMM (130-400); Red Blood Count 3.54 MC/CUMM (3.8-5.5); Red Cell Distribution Width 15.7 % (9.3-17.3); White Blood Count 9.7 T/CUMM (4-12)
[2022-11-02 05:04] LABS: Albumin 2.6 G/DL (3.4-5.0); Bilirubin,Total 0.8 MG/DL (0.20-1.00); Calcium 7.5 MG/DL (8.5-10.1); Osmolality,Calculated 276.7 MOS/KG (273-304); Potassium 4.9 MMOL/L (3.5-5.1); Total Protein 5.4 G/DL (6.4-8.2)
[2022-11-02] MEDS ORDERED: BUPIVACAINE MPF 0.25% 10 ML VIAL ONE (09:06)
[2022-11-02] MEDS ORDERED: LIDOCAINE 1%/EPI INJ 20 ML VIAL ONE (09:07)
[2022-11-02] MEDS ORDERED: TISSUE ADHESIVE 1 EACH APPLICATOR TOP ONE (09:07)
[2022-11-02] MEDS ORDERED: HEPARIN 5,000 UNIT/1 ML VIAL ONE (09:07)
[2022-11-02] MEDS ORDERED: propofoL 200 MG/20 ML VIAL IV ONE (09:19)
[2022-11-02] MEDS ORDERED: SEVOFLURANE 1 UNIT/15 MINUTE INH ONE ×4 (09:19→10:13)
[2022-11-02] MEDS ORDERED: fentaNYL 100 MCG/2 ML VIAL ONE (09:19)
[2022-11-02] MEDS ORDERED: LIDOCAINE 2% 5 ML VIAL ONE (09:19)
[2022-11-02] MEDS ORDERED: ONDANSETRON 4 MG/2 ML VIAL ONE (09:19)
[2022-11-02] MEDS ORDERED: MIDAZOLAM 2 MG/2 ML VIAL ONE (09:19)
[2022-11-02] MEDS ORDERED: ceFAZolin 1,000 MG VIAL ONE (09:35)
[2022-11-02] MEDS ORDERED: ETOMIDATE 40 MG/20 ML VIAL IV ONE (09:40)
[2022-11-02] MEDS ORDERED: ePHEDrine 50 MG/ML VIAL ONE (09:59)
[2022-11-02] MEDS ORDERED: PHENYLEPHRINE 1 MG/10 ML SYRINGE IV ONE (10:13)
[2022-11-02] MEDS ORDERED: PHENYLEPHRINE DRIP 40 MG/250 ML PREMIX IV ONE (10:31)
[2022-11-02 10:50] LABS: Hemoglobin 7.9 GM/DL (12.0-16.0)
[2022-11-02 10:56] LABS: Hematocrit 24.5 VOL% (35.7-47.0)
[2022-11-02] MEDS ORDERED: HYDROmorphone 1 MG/1 ML SYRINGE IV PRN (11:05)
[2022-11-02] MEDS ORDERED: CALCIUM CALTRATE PO SCH (12:24)
[2022-11-02] MEDS: PANTOPRAZOLE 40 MG TABLET PO SCH (12:27)
[2022-11-02] MEDS: PHENYLEPHRINE DRIP 40 MG/250 ML PREMIX IV PRN ×2 (12:40→20:49)
[2022-11-02] MEDS: MORPHINE 2 MG/1 ML SYRINGE IV PRN ×2 (12:40→23:00)
[2022-11-02 12:55] LABS: Basophils % 0.1 % (0.0-0.8); Eosinophils % 0.1 % (0.00-10.9); Hematocrit 24.6 VOL% (35.7-47.0); Hemoglobin 7.9 GM/DL (12.0-16.0); Immature Granulocytes % 1.2 %; Immature Granulocytes Absolute 0.22 #; Lymphocytes # 2.1 10*3/uL (1.4-4.0); Lymphocytes % 11.9 % (21.3-54.2); Mean Corpuscular HGB Conc 32.1 GM/DL (32-36); Mean Corpuscular Volume 87.5 FL (87-102); Mean Platelet Volume 10.3 FL (9.6-12.0); Monocytes # 0.7 10*3/uL (0.11-0.8); Neutrophils % 82.7 % (38.7-73.9); Platelet Count 169 T/CUMM (130-400); Red Blood Count 2.81 MC/CUMM (3.8-5.5); Red Cell Distribution Width 16.3 % (9.3-17.3)
[2022-11-02] MEDS ORDERED: HEPARIN 10,000 UNIT/10 ML VIAL IV PRN (12:59)
[2022-11-02 14:40] LABS: Platelet Estimate Normal
[2022-11-02] MEDS ORDERED: ZINC OXIDE PASTE 113 GM TUBE TOP PRN (15:21)
[2022-11-03] MEDS: PHENYLEPHRINE DRIP 40 MG/250 ML PREMIX IV PRN ×2 (00:39→04:28)
[2022-11-03] MEDS: ONDANSETRON 4 MG/2 ML VIAL IV PRN ×3 (01:25→21:47)
[2022-11-03 02:24] LABS: Basophils # 0.2 10*3/uL (0.0-0.2); Basophils % 0.5 % (0.0-0.8); Eosinophils # 0.2 10*3/uL (0.0-0.87); Eosinophils % 0.6 % (0.00-10.9); Hematocrit 26.1 VOL% (35.7-47.0); Hemoglobin 8.2 GM/DL (12.0-16.0); Immature Granulocytes % 0.7 %; Immature Granulocytes Absolute 0.21 #; Lymphocytes # 4.2 10*3/uL (1.4-4.0); Lymphocytes % 13.3 % (21.3-54.2); Mean Corpuscular HGB Conc 31.4 GM/DL (32-36); Mean Corpuscular Volume 89.1 FL (87-102); Mean Platelet Volume 10.3 FL (9.6-12.0); Monocytes # 1.9 10*3/uL (0.11-0.8); Monocytes % 5.9 % (1.7-12.7); Platelet Count 208 T/CUMM (130-400); Red Blood Count 2.93 MC/CUMM (3.8-5.5); Red Cell Distribution Width 17.4 % (9.3-17.3); White Blood Count 31.8 T/CUMM (4-12)
[2022-11-03 02:40] LABS: Calcium 7.9 MG/DL (8.5-10.1); Osmolality,Calculated 275.5 MOS/KG (273-304); Potassium 4.2 MMOL/L (3.5-5.1)
[2022-11-03 03:00] LABS: Hypochromia Slight; Lymphocytes 9 % (20-55); Microcytosis Slight; Platelet Estimate Adequate; Total Cells Counted 100
[2022-11-03] MEDS: MORPHINE 2 MG/1 ML SYRINGE IV PRN ×2 (03:23→21:49)
[2022-11-03] MEDS: PANTOPRAZOLE 40 MG TABLET PO SCH (08:00)
[2022-11-04 05:04] LABS: Osmolality,Calculated 276.7 MOS/KG (273-304); Potassium 3.8 MMOL/L (3.5-5.1)
[2022-11-04 06:31] LABS: Basophils % 0.2 % (0.0-0.8); Eosinophils # 0.2 10*3/uL (0.0-0.87); Eosinophils % 1.7 % (0.00-10.9); Immature Granulocytes % 0.3 %; Immature Granulocytes Absolute 0.03 #; Lymphocytes # 1.6 10*3/uL (1.4-4.0); Lymphocytes % 16.5 % (21.3-54.2); Mean Corpuscular HGB Conc 31.3 GM/DL (32-36); Mean Corpuscular Volume 90.4 FL (87-102); Mean Platelet Volume 9.7 FL (9.6-12.0); Monocytes # 0.7 10*3/uL (0.11-0.8); Monocytes % 6.9 % (1.7-12.7); Neutrophils % 74.4 % (38.7-73.9); Platelet Count 127 T/CUMM (130-400); Red Blood Count 1.98 MC/CUMM (3.8-5.5); Red Cell Distribution Width 17.1 % (9.3-17.3); White Blood Count 9.58 T/CUMM (4-12)
[2022-11-04 06:35] LABS: Hematocrit 17.9 VOL% (35.7-47.0); Hemoglobin 5.6 GM/DL (12.0-16.0)
[2022-11-04] MEDS ORDERED: SODIUM CHLORIDE 0.9% 1,000 ML IV PRN (06:43)
[2022-11-04] MEDS: PANTOPRAZOLE 40 MG TABLET PO SCH (09:07)
[2022-11-04 17:33] LABS: Basophils % 0.4 % (0.0-0.8); Eosinophils # 0.2 10*3/uL (0.0-0.87); Eosinophils % 1.8 % (0.00-10.9); Hematocrit 20.1 VOL% (35.7-47.0); Hemoglobin 6.5 GM/DL (12.0-16.0); Immature Granulocytes % 0.3 %; Immature Granulocytes Absolute 0.03 #; Lymphocytes # 1.6 10*3/uL (1.4-4.0); Lymphocytes % 16.7 % (21.3-54.2); Mean Corpuscular HGB Conc 32.3 GM/DL (32-36); Mean Corpuscular Volume 86.6 FL (87-102); Mean Platelet Volume 9.1 FL (9.6-12.0); Monocytes # 0.7 10*3/uL (0.11-0.8); Monocytes % 6.9 % (1.7-12.7); Neutrophils % 73.9 % (38.7-73.9); Platelet Count 155 T/CUMM (130-400); Red Blood Count 2.32 MC/CUMM (3.8-5.5); Red Cell Distribution Width 16.7 % (9.3-17.3); White Blood Count 9.51 T/CUMM (4-12)
[2022-11-05 05:21] LABS: Basophils % 0.5 % (0.0-0.8); Eosinophils # 0.2 10*3/uL (0.0-0.87); Eosinophils % 2.7 % (0.00-10.9); Hematocrit 21.7 VOL% (35.7-47.0); Hemoglobin 6.9 GM/DL (12.0-16.0); Immature Granulocytes % 0.7 %; Immature Granulocytes Absolute 0.05 #; Lymphocytes # 1.5 10*3/uL (1.4-4.0); Lymphocytes % 20.3 % (21.3-54.2); Mean Corpuscular HGB Conc 31.8 GM/DL (32-36); Mean Corpuscular Volume 87.9 FL (87-102); Mean Platelet Volume 9.7 FL (9.6-12.0); Monocytes # 0.5 10*3/uL (0.11-0.8); Monocytes % 6.1 % (1.7-12.7); Neutrophils % 69.7 % (38.7-73.9); Platelet Count 146 T/CUMM (130-400); Red Blood Count 2.47 MC/CUMM (3.8-5.5); White Blood Count 7.35 T/CUMM (4-12)
[2022-11-05 06:00] LABS: Osmolality,Calculated 275.8 MOS/KG (273-304); Potassium 4.2 MMOL/L (3.5-5.1)
[2022-11-05] MEDS: PANTOPRAZOLE 40 MG TABLET PO SCH (08:20)
[2022-11-05] MEDS: carvediloL 3.125 MG TABLET PO SCH ×2 (14:01→19:16)
[2022-11-06 04:55] LABS: Basophils % 0.6 % (0.0-0.8); Eosinophils # 0.2 10*3/uL (0.0-0.87); Eosinophils % 3.4 % (0.00-10.9); Hematocrit 27.8 VOL% (35.7-47.0); Hemoglobin 9.3 GM/DL (12.0-16.0); Immature Granulocytes % 0.6 %; Immature Granulocytes Absolute 0.03 #; Lymphocytes # 1.1 10*3/uL (1.4-4.0); Lymphocytes % 20.5 % (21.3-54.2); Mean Corpuscular HGB Conc 33.5 GM/DL (32-36); Mean Corpuscular Volume 85.8 FL (87-102); Mean Platelet Volume 9.4 FL (9.6-12.0); Monocytes # 0.4 10*3/uL (0.11-0.8); Monocytes % 8.2 % (1.7-12.7); Neutrophils % 66.7 % (38.7-73.9); Platelet Count 137 T/CUMM (130-400); Red Blood Count 3.24 MC/CUMM (3.8-5.5); White Blood Count 5.22 T/CUMM (4-12)
[2022-11-06 05:15] LABS: Calcium 6.7 MG/DL (8.5-10.1); Osmolality,Calculated 272.8 MOS/KG (273-304); Potassium 4.1 MMOL/L (3.5-5.1)
[2022-11-06] MEDS: carvediloL 3.125 MG TABLET PO SCH (07:44)
[2022-11-06] MEDS: PANTOPRAZOLE 40 MG TABLET PO SCH ×2 (07:45→14:10)
[2022-11-06] MEDS ORDERED: SACUBITRIL/VALSARTAN 49-51 MG TABLET PO SCH (10:00)
[2022-11-06 11:15] LABS: RBC,Urine 4 /HPF (0-4); Squamous Epithelial Cell,Urine Moderate /HPF (0-10)
[2022-11-06 11:16] LABS: Urine Appearance Clear (Clear); Urine Color Yellow (Yellow); Urine Specific Gravity 1.015 (1.001-1.035)
[2022-11-06 11:17] LABS: Bilirubin,Urine Negative (Negative); Blood, Urine Trace mg/dL (Negative); Glucose,Urine (UA) Negative (Negative); Ketones,Urine Negative (Negative); Nitrite,Urine Negative (Negative); Protein,Urine 100 mg/dL (Negative); Urine Urobilinogen 0.2 eU/dL (<2.0)
[2022-11-06 11:50] VITALS: BP 147/81
[2022-11-06] MEDS ORDERED: carvediloL 6.25 MG TABLET PO SCH (17:00)
[2022-11-06] MEDS ORDERED: MENTHOL/ZINC OXIDE OINT 71 GM JAR TOP SCH (21:00)
== END 2022-11-06 16:14 | disposition home or self-care (01) | DRG 907 ==
LOC: N.ED 16:57 → N.EDINP 16:57 → N.2W 11-02 09:31 → N.ICU 11-02 09:35 → N.TELES 11-03 21:43
PROVIDERS: ADMIT Internal Medicine Cardiovascular Disease; ATTEND Internal Medicine Cardiovascular Disease